=== PATIENT | male | born 1955 | race Two or more races ===

== ENCOUNTER 2018-12-24 12:14 | Emergency (ER) | payer BC, OTHER ==
[~2018-12-24] VITALS: Ht 160 cm; Wt 64.4 kg
[2018-12-24 15:56] LABS: Basophils # (auto) 0 uL; Basophils % (auto) 0.5 % (0.0-2.0); Eosinophils # (auto) 0.1 uL; Eosinophils % (auto) 1.2 % (0.0-7.0); Hematocrit 44.9 % (41.0-53.0); Hemoglobin 15.2 g/dL (13.5-17.5); Lymphocytes # (auto) 1.6 uL; Lymphocytes % (auto) 25.4 % (10.0-50.0); Mean Corpuscular Hemoglobin 29.7 pg (28.0-32.0); Mean Corpuscular Hgb Conc. 33.9 g/dL (32.0-36.0); Mean Corpuscular Volume 87.6 fL (80.0-100.0); Monocytes # (auto) 0.5 uL; Monocytes % (auto) 7.4 % (0.0-12.0); Neutrophils # (auto) 4.2 uL; Neutrophils % (auto) 65.5 % (37.0-80.0); Nucleated Red Blood Cells % 0.1 %; Platelet Count (auto) 231 10^3/uL (140-450); Red Blood Cells 5.12 10^6/uL (4.5-5.90); Red Cell Distribution Width 13.2 % (11.8-14.3); White Blood Cell 6.3 10^3/uL (4.4-10.8)
[2018-12-24 16:45] LABS: INR 0.94 (0.9-1.15); Partial Thromboplastin Time 27.6 sec (23.78-33.04); Prothrombin Time 10.1 sec (9.27-12.13)
[2018-12-24 21:36] VITALS: BP 156/84
[2018-12-24 23:08] LABS: Urine Specific Gravity 1.032 (1.001-1.035)
[2018-12-24 23:10] LABS: Urine Bacteria FEW /hpf (None Seen); Urine WBC 15 /hpf (0 - 3)
== END 2018-12-24 21:35 | disposition home or self-care (01) ==
LOC: ER 12:14
DX: R31.9 Hematuria, unspecified (principal)
CPT/HCPCS: 36415; 81001; 85025; 85610; 85730

== ENCOUNTER 2018-12-25 16:21 | Emergency (ER) | payer SELFPAY ==
[~2018-12-25] VITALS: Ht 160 cm; Wt 63.5 kg
[2018-12-25 18:33] VITALS: BP 121/71
== END 2018-12-25 19:09 | disposition home or self-care (01) ==
LOC: ER 16:29
DX: T83.098A Other mechanical complication of other urinary catheter, initial encounter (principal); R33.9 Retention of urine, unspecified; R31.9 Hematuria, unspecified
CPT/HCPCS: 51702